=== PATIENT | male | born 1960 | race Caucasian/White ===

== ENCOUNTER 2016-12-13 14:10 | Emergency (ER) | payer BC ==
[~2016-12-13 14:10] MED LIST: Acetaminophen/oxyCODONE 325-5 MG Tab PO ONE
--- NOTE | 2016-12-13 14:27 | EDM.PDOC ---
ED HPI Trauma - General Chief Complaint: Upper Extremity Injury/Pain Stated Complaint: elbow pain Time Seen by Provider: 12/13/16 14:00 Source: Reports: Patient History Limitations: Reports: No limitations - History of Present Illness INITIAL COMMENTS - FREE TEXT/NARRATIVE: History of present illness: [56-year-old male presenting with acute pain to left shoulder and left elbow status post slip and fall on ice. Patient indicates this occurred at 2000 last night. Indicated he went with family in thinking it was just a contusion and hoping that he could sleep off the problem. Now he indicates that he is having increased pain and range of motion has become problematic secondary to level of pain with attempted movement. Patient has notable decrease strength to the left arm.] Review of systems: As per history of present illness and below otherwise all systems reviewed and negative. Past medical history: As per history of present illness and as reviewed below otherwise noncontributory. Surgical history: As per history of present illness and as reviewed below otherwise noncontributory. Social history: No reported history of drug or alcohol abuse. Family history: As per history of present illness and as reviewed below otherwise noncontributory. Physical exam: HEENT: Atraumatic, normocephalic, pupils reactive, negative for conjunctival pallor or scleral icterus, mucous membranes moist, throat clear, neck supple, nontender, trachea midline. Lungs: Clear to auscultation, breath sounds equal bilaterally, chest nontender. Heart: S1S2, regular, negative for clicks, rubs, or JVD. Abdomen: Soft, nondistended, nontender. Negative for masses or hepatosplenomegaly. Negative for costovertebral tenderness. Pelvis: Stable nontender. Genitourinary: Deferred. Rectal: Deferred. Extremities: Atraumatic, negative for cords or calf pain. Neurovascular unremarkable. Neuro: Awake, alert, oriented. Cranial nerves II through XII unremarkable. Cerebellum unremarkable. Motor and sensory unremarkable throughout. Exam nonfocal. X-ray negative for any acute bony injury cannot rule out soft tissue damage which is consistent with patient's pain we'll provide a sling patient indicates has sling at home we'll provide a run of pain medicine until he can followup with primary care provider and evaluate for physical therapy Diagnostics: [X-ray of left shoulder and left elbow] Therapeutics: [Toradol 60 mg IM] Impression: [Soft tissue injury/left shoulder pain] Plan: [Followup with primary care provider] Definitive disposition and diagnosis as appropriate pending reevaluation and review of above. Allergies/ADRs: Allergies No Known Allergies Allergy (Verified 12/13/16 14:36) Home Medications: Ambulatory Orders . [No Known Home Meds] 12/13/16 [Confirmed 12/13/16] Review of Systems - Review of Systems Review Of Systems: See Below (See history of present illness) Trauma Exam - Physical Exam Exam: See Below (See history of present illness) Course - Vital Signs Last Recorded V/S: Last Vital Signs Temp 37.8 C 12/13/16 14:33 Pulse 99 12/13/16 14:33 Resp 18 12/13/16 14:33 BP 165/95 H 12/13/16 14:33 Pulse Ox 94 L 12/13/16 14:33 - Orders/Labs/Meds Orders: Active Orders 24 hr Category Date Time Status Elbow Min 3V Lt [CR] Stat Exams 12/13/16 14:28 Taken Shoulder Comp Lt [CR] Stat Exams 12/13/16 14:28 Taken Meds: Medications Discontinued Medications Generic Name Dose Route Start Last Admin Trade Name Freq PRN Reason Stop Dose Admin Ketorolac Tromethamine 60 mg 12/13/16 14:28 12/13/16 14:56 Toradol IM 12/13/16 14:29 60 mg ONETIME ONE Administration Departure - Departure Time of Disposition: 15:43 Disposition: Home, Self-Care 01 Condition: good Clinical Impression: Shoulder pain, acute Qualifiers: Laterality: left Qualified Code(s): M25.512 - Pain in left shoulder Instructions: Shoulder Pain, [id number], How to Use a Sling, [id number] Forms: ED Department Discharge Additional Instructions: The following information is given to patients seen in the emergency department who are being discharged to home. This information is to outline your options for follow-up care. We provide all patients seen in our emergency department with a follow-up referral. The need for follow-up, as well as the timing and circumstances, are variable depending upon the specifics of your emergency department visit. If you don't have a primary care physician on staff, we will provide you with a referral. We always advise you to contact your personal physician following an emergency department visit to inform them of the circumstance of the visit and for follow-up with them and/or the need for any referrals to a consulting specialist. The emergency department will also refer you to a specialist when appropriate. This referral assures that you have the opportunity for follow-up care with a specialist. All of these measure are taken in an effort to provide you with optimal care, which includes your follow-up. Under all circumstances we always encourage you to contact your private physician who remains a resource for coordinating your care. When calling for follow-up care, please make the office aware that this follow-up is from your recent emergency room visit. If for any reason you are refused follow-up, please contact the [facility] Emergency Department at and asked to speak to the emergency department charge nurse. Followup with primary care provider one to 2 days Keep the arm iced and elevated and in sling as much as possible You've been given some take home pain medication Return to ED as needed as discussed - My Orders Last 24 Hours: My Active Orders 12/13/16 14:28 Elbow Min 3V Lt [CR] Stat Shoulder Comp Lt [CR] Stat - Assessment/Plan Last 24 Hours: My Active Orders 12/13/16 14:28 Elbow Min 3V Lt [CR] Stat Shoulder Comp Lt [CR] Stat
[2016-12-13] MEDS ORDERED: Ketorolac 60 MG/2 ML SDV IM ONE (14:28)
[2016-12-13 14:36] VITALS: BP 165/95
[2016-12-13] MEDS ORDERED: Take Home: Acetaminophen/oxyCODONE 325-5 MG, 2 Tab Pack PO ONE (15:33)
== END 2016-12-13 15:58 | disposition home or self-care (01) ==
LOC: CC.ED 14:10
DX: M25.512 Pain in left shoulder (principal); M25.522 Pain in left elbow; W00.0XXA Fall on same level due to ice and snow, initial encounter
CPT/HCPCS: 73030; 73080; 96372; 99283; A9270; J1885

== ENCOUNTER → 2021-10-24 | Day surgery (SDC) | payer BC ==
[~2021-10-24] MED LIST changes: -Acetaminophen/oxyCODONE 325-5 MG Tab PO ONE; +Flumazenil 0.1 MG/ML 10 ML MDV ONE; +Ketamine 200 MG/20 ML MDV ONE; +Lactated Ringers 1,000 ML IV SCH; +Midazolam 1 MG/ML 2 ML SDV ONE; +Phenylephrine 1% 10 MG/ML SDV ONE; +Phenytoin 250 MG/5 ML SDV ONE; +Propofol 200 MG/20 ML SDV ONE; +fentaNYL 100 MCG/2 ML SDV ONE
[2021-10-24] MEDS: Lactated Ringers 1,000 ML IV SCH ×2 (08:04→13:26)
[2021-10-24 13:20] VITALS: BP 111/80; PULSE 81
== END ==
LOC: CC.SDS 07:43
PROVIDERS: ATTEND Family Medicine
DX: Z12.11 Encounter for screening for malignant neoplasm of colon (principal); K63.5 Polyp of colon; K57.30 Diverticulosis of large intestine without perforation or abscess without bleeding; F17.210 Nicotine dependence, cigarettes, uncomplicated; E11.9 Type 2 diabetes mellitus without complications; E78.2 Mixed hyperlipidemia; Z79.84 Long term (current) use of oral hypoglycemic drugs; Z88.8 Allergy status to other drugs, medicaments and biological substances; Z79.899 Other long term (current) drug therapy; Z90.49 Acquired absence of other specified parts of digestive tract; Z98.890 Other specified postprocedural states
CPT/HCPCS: J1165; J2250; J2370; J2704; J3010; J7120

== ENCOUNTER 2024-10-27 07:52 | Day surgery (SDC) | payer BC ==
[2024-10-27] MEDS: Lactated Ringers 1,000 ML IV SCH (08:06)
[2024-10-27] MEDS ORDERED: Ketamine 200 MG/20 ML MDV ONE (08:49)
[2024-10-27] MEDS ORDERED: Midazolam 1 MG/ML 2 ML SDV ONE (08:49)
[2024-10-27] MEDS ORDERED: Propofol 200 MG/20 ML SDV ONE ×2 (08:49)
[2024-10-27] MEDS ORDERED: fentaNYL 50 MCG/ML SDV ONE ×2 (08:49)
[2024-10-27 11:06] VITALS: BP 131/71; PULSE 82
== END 2024-10-27 10:25 | disposition home or self-care (01) ==
LOC: CC.SDS 07:52
PROVIDERS: ATTEND Family Medicine
DX: Z12.11 Encounter for screening for malignant neoplasm of colon (principal); D12.5 Benign neoplasm of sigmoid colon; K57.30 Diverticulosis of large intestine without perforation or abscess without bleeding; K63.89 Other specified diseases of intestine; E11.9 Type 2 diabetes mellitus without complications; E78.2 Mixed hyperlipidemia; I10 Essential (primary) hypertension; Z79.84 Long term (current) use of oral hypoglycemic drugs; Z79.899 Other long term (current) drug therapy; Z86.0100 Personal history of colon polyps, unspecified; F17.200 Nicotine dependence, unspecified, uncomplicated
CPT/HCPCS: 00811; J2250; J2704; J3010; J3490; J7120

== ENCOUNTER 2025-06-30 10:11 | Emergency (ER) | payer BC ==
[2025-06-30 10:24] VITALS: BP 150/90; PULSE 85
[2025-06-30] MEDS: Triamcinolone Acetonide 40 MG/ML 1 ML SDV IM ONE (10:33)
== END 2025-06-30 10:53 | disposition home or self-care (01) ==
LOC: CC.ED 10:11
DX: J32.9 Chronic sinusitis, unspecified (principal); B96.89 Other specified bacterial agents as the cause of diseases classified elsewhere; F17.210 Nicotine dependence, cigarettes, uncomplicated; Z88.8 Allergy status to other drugs, medicaments and biological substances; Z79.899 Other long term (current) drug therapy; Z79.84 Long term (current) use of oral hypoglycemic drugs; Z90.49 Acquired absence of other specified parts of digestive tract
CPT/HCPCS: 96372; 99283; J0696; J3301